=== PATIENT | male | born 1965 | race African-American/Black ===

== ENCOUNTER 2024-09-15 20:06 | Emergency (ER) | payer OTHER ==
[~2024-09-15] VITALS: Ht 177.8 cm; Wt 90.0 kg
[2024-09-15 20:15] VITALS: O2SAT 99
[2024-09-15 21:58] LABS: BASOPHILS % 0.4 % (0.0-2.0); EOSINOPHILS % 1.1 % (0.0-5.0); HEMATOCRIT. 34.4 % (42.0-52.0); HEMOGLOBIN. 11.3 g/dL (14.0-18.0); LYMPHOCYTES % 12.5 % (20.0-50.0); MEAN CORPUSCULAR HEMOGLOBIN 31.5 pg (28.0-32.0); MEAN CORPUSCULAR VOLUME 95.6 fL (80.0-94.0); MONOCYTES % 7.4 % (2.0-8.0); NEUTROPHILS % 78.6 % (40.0-76.0); PLATELET 185 x1000/uL (130-400); RED CELL DISTRIBUTION WIDTH 14.6 % (11.6-14.6); WHITE BLOOD COUNT 8.5 x1000/uL (4.5-11.0)
[2024-09-15 23:09] LABS: CHLORIDE 100 mEq/L (98-107); POTASSIUM 4.5 mEq/L (3.5-5.1); SODIUM 136 mEq/L (136-145)
[2024-09-15 23:10] LABS: CARBON DIOXIDE 27 mEq/L (21-32)
[2024-09-15 23:11] LABS: CALCIUM 8.5 mg/dL (8.7-10.4)
[2024-09-15 23:15] LABS: GLUCOSE 192 mg/dL (70-105)
[2024-09-15 23:16] LABS: TROPONIN I HIGH SENSITIVITY 14 ng/L (3.0-53); UREA NITROGEN BLOOD 32 mg/dL (9-23)
[2024-09-15 23:18] LABS: CREATININE 8.4 mg/dL (0.6-1.3)
[2024-09-15 23:33] LABS: TROPONIN I HIGH SENSITIVITY 16 ng/L (3.0-53)
[2024-09-15] MEDS: HYDROCODONE/ACETAMINOPHEN 5/325MG TABLET PO ONE (23:45)
[2024-09-16] VITALS: BP 166/85; PULSE 77; RESP 18; TEMP 36.72516; O2SAT 99
[2024-09-16] MEDS ORDERED: ACET-2708 MT (00:04)
[2024-09-16] MEDS ORDERED: GABA-532 MT (00:04)
[2024-09-16] MEDS ORDERED: AZIT250T12 MT (00:04)
[2024-09-16] MEDS ORDERED: LORA10CA MT (00:04)
[2024-09-16] MEDS ORDERED: FLUT9.9S BOTHNSTRLS (00:04)
== END 2024-09-16 00:25 | disposition home or self-care (01) ==
LOC: ER 20:06
DX: R51.9 Headache, unspecified (principal); H61.23 Impacted cerumen, bilateral; I12.0 Hypertensive chronic kidney disease with stage 5 chronic kidney disease or end stage renal disease; E11.22 Type 2 diabetes mellitus with diabetic chronic kidney disease; N18.6 End stage renal disease; Z88.0 Allergy status to penicillin; Z99.2 Dependence on renal dialysis
CPT/HCPCS: 36415; 71045; 80048; 83880; 84484; 85025; 99284